=== PATIENT | female | born 1945 | race Caucasian/White ===

== ENCOUNTER → 2021-05-20 12:08 | Outpatient (BNVA) | payer MEDICARE, MEDICAID, SELFPAY | PROVIDERS: Family Provider Nurse Practitioner Family; PCP Nurse Practitioner Family; Visit Provider Family Medicine | DX: M25.571 Pain in right ankle and joints of right foot (principal) | CPT/HCPCS: 73600 ==

== ENCOUNTER → 2021-06-08 11:49 | Outpatient (BNVA) | payer MEDICARE, MEDICAID, SELFPAY | PROVIDERS: Family Provider Nurse Practitioner Family; PCP Nurse Practitioner Family; Visit Provider Nurse Practitioner Family | DX: M25.571 Pain in right ankle and joints of right foot (principal); R20.0 Anesthesia of skin | CPT/HCPCS: 73610; 73630 ==

== ENCOUNTER → 2022-04-29 14:23 | Outpatient (BNVA) | payer MEDICARE, MEDICAID, SELFPAY | PROVIDERS: Family Provider Nurse Practitioner Family; PCP Nurse Practitioner Family; Referring Provider Nurse Practitioner Family; Visit Provider Internal Medicine | DX: E21.0 Primary hyperparathyroidism (principal) | CPT/HCPCS: 36415; 82306; 82310; 83970; 99204 ==

== ENCOUNTER → 2022-05-24 12:40 | Outpatient (BNVA) | payer MEDICARE, MEDICAID, SELFPAY | PROVIDERS: Family Provider Nurse Practitioner Family; PCP Nurse Practitioner Family; Visit Provider Internal Medicine Cardiovascular Disease | DX: I10 Essential (primary) hypertension (principal) | CPT/HCPCS: 99204 ==

== ENCOUNTER 2022-07-13 11:40 | Outpatient (CLI) | payer MEDICARE, MEDICAID, SELFPAY ==
--- NOTE | 2022-07-13 13:00 | XR_ITS ---
WS: [id number] DEXA (DUAL ENERGY X-RAY ABSORPTIOMETRY) Bone mineral density was performed using a [employer] machine. HISTORY: Primary hyperparathyroidism COMPARISON: None available. Lumbar spine BMD (L1-L4): 1.009 g/cm2 T score: -1.4 Z score: 0.0 Total hip BMD: Left: 0.658 g/cm2. T score: -2.8 Z score: -1.2 Right: 0.678 g/cm2. T score: -2.6 Z score: -1.0 10 year probability of a major osteoporotic fracture is 38.7%. XR/XR DEXA axial skeleton* 12443 IMPRESSION: OSTEOPOROSIS based upon the WHO classification for females.
== END 2022-07-13 11:41 | disposition home or self-care (01) ==
PROVIDERS: PCP Nurse Practitioner Family; Visit Provider Internal Medicine
DX: E21.0 Primary hyperparathyroidism (principal); M81.0 Age-related osteoporosis without current pathological fracture
CPT/HCPCS: 77080

== ENCOUNTER 2022-07-27 12:47 | Outpatient (CLI) | payer MEDICARE, MEDICAID, SELFPAY ==
--- NOTE | 2022-07-27 14:30 | USCV_ITS ---
Tania Hall Age: 76 Gender: F : 1945 Exam Date: 07/27/2022 14:07 Ordering Phys: Teressa Martinez MD ([email or web address]) Technologist: [place] [facility] [place]: chest pain BP: 120 / 70 HR: 88 Rhythm: Sinus Technical Quality: Adequate MEASUREMENTS (Male / Female) Normal Values 2D ECHO LV Diastolic Diameter PLAX 4.1 cm 4.2 - 5.9 / 3.9 - 5.3 cm LV Systolic Diameter PLAX 1.7 cm IVS Diastolic Thickness 2.5 cm 0.6 - 1.0 / 0.6 - 0.9 cm IVS Systolic Thickness 1.9 cm LVPW Diastolic Thickness 0.9 cm 0.6 - 1.0 / 0.6 - 0.9 cm LVPW Systolic Thickness 1.3 cm LVOT Diameter 2.0 cm LV Ejection Fraction 2D Teich 88.5 % LV Ejection Fraction MOD 2C 58.1 % LV Ejection Fraction 2C AL 57.2 % LA Diameter 3.7 cm M-MODE Aortic Annulus Diameter 2.8 cm LA Ao Ratio MM 1.3 MV E Point Septal Separation 0.6 cm DOPPLER AV Peak Velocity 253.7 cm/s LVOT Peak Velocity 114.0 cm/s AV Area Cont Eq vti 1.4 cm squared AV Area Cont Eq pk 1.4 cm squared MV Area PHT 5.1 cm squared Mitral E to A Ratio 2.7 MV E' Velocity 71.5 cm/s Mitral E to MV E' Ratio 20.2 Mitral E to LV E' Lateral Ratio 17.6 Mitral E to LV E' Septal Ratio 23.8 TR Peak Velocity 258.3 cm/s TR Peak Gradient 26.7 mmHg TV Peak E Velocity 125.0 cm/s Right Atrial Pressure 3.0 mmHg Pulmonary Artery Systolic Pressu 29.7 mmHg PV Peak Velocity 99.0 cm/s RV Acceleration Time 0.1 s FINDINGS Left Ventricle Normal left ventricular size, systolic function and wall thickness, with no regional wall motion abnormalities. Left ventricular ejection fraction is estimated at 60 %. Abnormal diastolic function. Right Ventricle Normal right ventricular size and systolic function. RVSP could not be calculated due to incomplete tricuspid regurgitation velocity profile. Right Atrium Normal right atrial size. Left Atrium Mildly increased left atrial size. Mitral Valve Structurally normal mitral valve. No mitral valve stenosis. No mitral valve regurgitation. Aortic Valve Structurally normal trileaflet aortic valve. Aortic valve sclerosis without stenosis. Mild aortic valve regurgitation. Tricuspid Valve Structurally normal tricuspid valve. Trace tricuspid valve regurgitation. Pulmonic Valve Structurally normal pulmonic valve. No pulmonary valve stenosis. Trace pulmonary valve regurgitation. Pericardium No pericardial effusion. Aorta Normal size aortic root and proximal ascending aorta. IVC Inferior vena cava not visualized. CONCLUSIONS 1. Normal left ventricular size, systolic function and wall thickness, with no regional wall motion abnormalities. Left ventricular ejection fraction is estimated at 60 %. Abnormal diastolic function. 2. Aortic valve sclerosis without stenosis. Mild aortic valve regurgitation. 3. No prior similar studies to compare. Teressa Martinez MD (Electronically Signed) Final Date: 31 July 2022 19:44 S
== END 2022-07-27 12:48 | disposition home or self-care (01) ==
LOC: RAD 12:47
PROVIDERS: PCP Nurse Practitioner Family; Visit Provider Internal Medicine Cardiovascular Disease
DX: R06.02 Shortness of breath (principal); I35.8 Other nonrheumatic aortic valve disorders
CPT/HCPCS: 93306

== ENCOUNTER 2023-04-26 11:30 | Outpatient (CLI) | payer MEDICARE, MEDICAID, SELFPAY ==
--- NOTE | 2023-04-26 12:00 | USCV_ITS ---
Tania Hall Age: 77 Gender: F : 1945 Exam Date: 04/26/2023 12:16 Ordering Phys: Jennie Burrell Technologist: Virgie Rodríguez [place] [facility] [place]: SOB, HTN BP: 165 / 78 HR: 69 Rhythm: Sinus Technical Quality: Suboptimal MEASUREMENTS (Male / Female) Normal Values 2D ECHO LV Diastolic Diameter PLAX 3.0 cm 4.2 - 5.9 / 3.9 - 5.3 cm LV Systolic Diameter PLAX 2.0 cm IVS Diastolic Thickness 1.9 cm 0.6 - 1.0 / 0.6 - 0.9 cm IVS Systolic Thickness 1.9 cm LVPW Diastolic Thickness 1.4 cm 0.6 - 1.0 / 0.6 - 0.9 cm LVPW Systolic Thickness 1.4 cm LVOT Diameter 2.0 cm LV Ejection Fraction 2D Teich 62.9 % LV Ejection Fraction MOD 2C 63.5 % LV Ejection Fraction 2C AL 62.5 % LA Diameter 3.3 cm LA Width 3.9 cm LA Height 3.7 cm RA Width 2.3 cm RA Height 3.9 cm Aorta at Sinotubular Diameter 2.3 cm IVC Diameter 1.2 cm M-MODE Aortic Annulus Diameter 2.7 cm LA Ao Ratio MM 1.4 MV E Point Septal Separation 0.7 cm DOPPLER AV Peak Velocity 240.2 cm/s LVOT Peak Velocity 81.0 cm/s AV Area Cont Eq vti 1.2 cm squared AV Area Cont Eq pk 1.1 cm squared MV Peak Velocity 119.0 cm/s MV Area PHT 4.1 cm squared Mitral E to A Ratio 1.1 MV E' Velocity 52.0 cm/s Mitral E to MV E' Ratio 8.7 Mitral E to LV E' Lateral Ratio 10.9 Mitral E to LV E' Septal Ratio 7.3 TR Peak Velocity 74.0 cm/s TR Peak Gradient 2.2 mmHg Right Atrial Pressure 5.0 mmHg Pulmonary Artery Systolic Pressu 7.2 mmHg PV Peak Velocity 70.0 cm/s RV Acceleration Time 0.2 s RV Ejection Time 0.4 s RV AcT/ET 0.5 FINDINGS Left Ventricle Normal left ventricular size, systolic function and wall thickness, with no regional wall motion abnormalities. Grade I/IV diastolic dysfunction (abnormal relaxation filling pattern), normal to mildly elevated filling pressures. Left ventricular ejection fraction is estimated at 60 %. Right Ventricle Normal right ventricular size and systolic function. Normal right ventricular systolic pressure. Right Atrium The right atrium is normal in size. Left Atrium The left atrium is normal in size. Mitral Valve Structurally normal mitral valve. Mild mitral valve regurgitation. Aortic Valve Structurally normal trileaflet aortic valve. Mild aortic valve calcification. Mild aortic valve regurgitation. Mild aortic valve stenosis, mean gradient 12.2 mmHg, [place] 1.2 cm squared. Tricuspid Valve Structurally normal tricuspid valve. Trace tricuspid valve regurgitation. Pulmonic Valve Pulmonic valve not well visualized. Pericardium Normal pericardium without effusion. Aorta Normal ascending aorta dimension. IVC The inferior vena cava appears normal. CONCLUSIONS Normal left ventricular size, systolic function and wall thickness, with no regional wall motion abnormalities. Grade I/IV diastolic dysfunction (abnormal relaxation filling pattern), normal to mildly elevated filling pressures. Left ventricular ejection fraction is estimated at 60 %. Structurally normal mitral valve. Mild mitral valve regurgitation. Structurally normal trileaflet aortic valve. Mild aortic valve calcification. Mild aortic valve regurgitation. Mild aortic valve stenosis, mean gradient 12.2 mmHg, [place] 1.2 cm squared. Previous study was done 9 months ago. There has essentially been no change however aortic stenosis was not noted at the last echo. This may be a function of the quality of the studies. Otherwise there has been no change. Dr. Bart Gannon MD (Electronically Signed) Final Date: 26 April 2023 18:23 S
== END 2023-04-26 11:31 | disposition home or self-care (01) ==
PROVIDERS: PCP Nurse Practitioner Family; Visit Provider Nurse Practitioner Family
DX: R01.1 Cardiac murmur, unspecified (principal); R06.02 Shortness of breath; I10 Essential (primary) hypertension; I34.0 Nonrheumatic mitral (valve) insufficiency; I35.2 Nonrheumatic aortic (valve) stenosis with insufficiency
CPT/HCPCS: 93306

== ENCOUNTER → 2024-11-14 08:09 | Day surgery (SDC) | payer MEDICARE, MEDICAID, SELFPAY ==
[2024-11-14 08:30] VITALS: BP 138/70; PULSE 115; RESP 18; TEMP 36.5; O2SAT 94
[2024-11-14 08:31] VITALS: BMI 23.1
--- NOTE | 2024-11-14 08:43 | US_ITS ---
WS: [id number] Ultrasound chest, limited. HISTORY: Patient presents for thoracentesis. Ultrasound performed of the RIGHT chest. There is a very loculated small pleural effusion. Multiple loculations and complex echogenic material present. No thoracentesis will be performed due to the extensive loculations and small effusions. Pockets of fluid are very small and would not likely yield any pleural effusion. In order to remove or improved this complex effusion chest tube may be of benefit. Consider bronchoscopy to evaluate the previously d escribed adenopathy. US/US chest [id number] IMPRESSION: 1. Small very loculated RIGHT pleural effusion. No thoracentesis will be perfor med today due to the limited yield from this effusion. This was explained to th e patient and her granddaughter and they have both agreed not to pursue the [facility] racentesis at this time. Chest tube may be of benefit to remove the very loculated effusion. Bronchoscop y may be of benefit to evaluate the lymphadenopathy.
[2024-11-14 09:20] LABS: INR 1.04 (0.8-1.2)
--- NOTE | 2024-11-14 11:23 | PC.NURSE ---
Dr. Edmond discussed risks and benefits with patient and decision was made to cancel procedure at this time.
== END ==
PROVIDERS: Radiology Diagnostic Radiology; PCP Nurse Practitioner Family; Visit Provider Nurse Practitioner Family
DX: J90 Pleural effusion, not elsewhere classified (principal); Z53.8 Procedure and treatment not carried out for other reasons
CPT/HCPCS: 32555; 36415; 76604; 85610